=== PATIENT | female | born 1980 | race Two or more races ===

== ENCOUNTER → 2018-06-10 | Outpatient (CLI) | payer OTHER ==
[~2018-06-10] MED LIST: ISOVUE-370 76% 100ML VIAL (Q9967) As Ordered ONE
--- NOTE | 2018-06-10 18:03 | REP ---
Clinical: Left axillary swelling. Technique: Axial contrast enhanced images from the thoracic inlet to the upper abdomen with coronal and sagittal re-formations using 100 ml Isovue 370 intravenous contrast material. Comparison: None. Findings: Bilateral lung tovar are essentially well-aerated and clear. Very subtle right-sided posterobasilar dependent changes are suggested. No consolidation, significant nodule, pleural effusion, or pneumothorax. Tracheobronchial tree is patent. No adenopathy. A web of thin collateral vessels within the mediastinum appear to extend from the right subclavian vein which may represent chronic changes related to prior thrombus. The thoracic aorta and heart appear normal. No pericardial effusion. Surrounding musculoskeletal structures appear intact. Left axillary region is grossly unremarkable and without adenopathy. However, there is a focal area of skin thickening and small 12 mm rounded sub dermal focus which may represent small lymph node and possibly related to patient's symptoms (images 20-25) . Impression: 1. No acute pleuroparenchymal process appreciated. 2. 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 3. Very subtle area of dermal thickening with round 12 mm nodule at the region of the left axilla is otherwise nonspecific and possibly related to patient's symptoms. If necessary consider follow-up ultrasound. Electronically Signed by Leroy Chaves MD 06/10/2018 05:53 P
== END ==
LOC: M RAD 15:29
PROVIDERS: ATTEND Family Medicine
DX: R22.2 Localized swelling, mass and lump, trunk (principal); Z85.79 Personal history of other malignant neoplasms of lymphoid, hematopoietic and related tissues
CPT/HCPCS: 71260; Q9967

== ENCOUNTER → 2018-06-15 | Outpatient (CLI) | payer OTHER ==
--- NOTE | 2018-06-15 16:04 | REP ---
Digital diagnostic unilateral left breast mammography and focused left breast sonography: History: Palpable lump in the left axilla. Present times 3 months. Past medical history of stage III Hodgkin's lymphoma in 2003 treated with chemotherapy. Tender nodule on palpation. Comparison is made with CT study of the chest exam dated June 10, 2018 showing an area of dermal thickening and subdermal low density area in the left axilla. Mammographic findings: A skin marker is affixed to the skin at the site of the palpable lump. This was so high and so posterior in the left axilla that it could not be successfully or completely projected on the imaging field of view. The MLO view demonstrates the bottom portion of the skin marker. There is a normal appearing left axillary lymph node several centimeters deep to this. The breast parenchyma is homogeneously fat replaced. No dominant density, architectural distortion, or microcalcification is visible in the left breast. Sonographic findings: The area of the palpable abnormality is scanned in the left axilla. This corresponds to a superficial subdermal 1.4 x 0.7 x 1.7 cm hypoechoic area with enhanced through transmission and peripheral Doppler flow. The long axis of the lesion is parallel to the skin. No other abnormality is seen. This is felt to correspond to the abnormality on CT scanning. It is most compatible with an infected sebaceous cyst or hair follicle. Clinical follow-up is recommended. No adenopathy is seen. Impression: BIRADS category 3 probably benign left breast imaging. The palpable lesion most compatible with infected sebaceous cyst or hair follicle in the left axilla. Clinical follow-up is advised. Repeat sonography recommended in 6 months to document resolution. BI-RADS/ACR category 3 mammogram. Probably benign findings. Initial short-term followup (usually 6 month) examination. This mammogram was interpreted with the aid of an FDA-approved computer-aided detection system. The patient states she had a clinical breast exam in May 2018. The patient letter being requested is m#[id number] . Electronically Signed by Chaz Vaca MD 06/15/2018 05:05 P
== END ==
LOC: EDBD → M RAD 14:19 → EDUNIT# 14:30
PROVIDERS: ATTEND Family Medicine
DX: R22.32 Localized swelling, mass and lump, left upper limb (principal)

== ENCOUNTER → 2019-04-20 | Outpatient (CLI) | payer OTHER ==
[~2019-04-20] MED LIST changes: +DIPH25CA32 PO; +EPIP0.3I2 IM; +FIORCAP3 PO; +GASTROGRAFIN SOLUTION 30ML (Q9963) As Ordered ONE; +HYDR12.55 PO; +LOSA50TA88 PO; +NORV5TAB PO; +PRED50TA PO; +XARE20TA PO
--- NOTE | 2019-04-20 11:23 | REP ---
Clinical: Hodgkin's lymphoma. Technique: Axial contrast enhanced images from the lung bases to the pubic symphysis using oral (per protocol) and 100 ml Isovue 370 intravenous contrast material with coronal and sagittal re-formations. Comparison: None Findings: Lung bases are clear. Visualized heart and pericardium normal. Hepatomegaly suggested without focal hepatic lesion. Spleen is normal. Pancreas, gallbladder, bilateral adrenal glands and kidneys are unremarkable. The enteric system is without obstruction or acute inflammatory process. Normal terminal ileum and appendix identified in the right lower quadrant. Pelvis demonstrates normal bladder and age-appropriate uterus/adnexa. No ascites. No free air. No intraperitoneal or retroperitoneal adenopathy. Incidental circumaortic left renal veins noted. Abdominal aorta without aneurysm or dissection. Chronic L5 spondylolysis with approximately 11 mm of anterolisthesis and associated degenerative changes at L5-S1 disc space. Impression: No acute abdominopelvic pathology appreciated. No ascites. No adenopathy. No focal inflammatory stranding. Chronic L5 spondylolysis with spondylolisthesis. Electronically Signed by Leroy Chaves MD 04/20/2019 11:14 A
--- NOTE | 2019-04-20 11:32 | REP ---
CT neck soft tissues: 04/20/2019. Indication: Lymphoma. Comparison: 01/31/2018. Technique: Axial images of the neck soft tissues were obtained following 100 ml of IV Isovue 370. Coronal and sagittal reconstructions were provided. Findings: There is no cervical lymphadenopathy by size or morphologic criteria. There are a few non pathologic appearing lymph nodes bilaterally including the previously seen parotid/. Parotid lymph nodes. Left palatine tonsil tonsillar is present. There is a retropharyngeal course of the cervical ICA as. The thyroid gland is unremarkable. The airway is patent. No significant vascular abnormalities are detected. No significant ocular, intraorbital or intracranial abnormalities are detected. Please see dedicated chest report for additional details. Impression: No cervical lymphadenopathy. Electronically Signed by Marcos Combs DO 04/20/2019 11:24 A
--- NOTE | 2019-04-20 11:45 | REP ---
CT CHEST WITH IV CONTRAST: HISTORY: History of Hodgkin's lymphoma. Enlarging cervical and paraspinal nodes on [address] studies. Rule out recurrence. CT CONTRAST DOSE: 100 mL of intravenous Isovue 370. COMPARISON CT STUDY: January 15, 2019. CT FINDINGS: Digital diamond sorter view is unremarkable. A left arm vein is utilized for the contrast injection. 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 This is a chronic finding with well established venous collaterals including of bilateral internal mammary veins, azygos veins, peribronchial veins. 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 I do not see a visible SVC thrombus. There are tiny lymph nodes in the mediastinal fat in the upper mediastinum which are unchanged from comparison study. There are multiple densities in the mediastinal fat from collateral venous structures. No adenopathy is appreciated. There is good opacification of the aorta and pulmonary arterial tree. No aneurysm, dissection, or pulmonary embolus is appreciated. The lung tovar are clear except for some mild linear fibrosis in the left base. No bony destructive lesion is appreciated. 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 There is no evidence of hilar or mediastinal lymphadenopathy. No extrathoracic adenopathy is seen. Otherwise no acute disease. Electronically Signed by Chaz Vaca MD 04/20/2019 01:36 P
== END ==
LOC: M RAD 08:57
PROVIDERS: ATTEND Internal Medicine Medical Oncology
DX: Z85.71 Personal history of Hodgkin lymphoma (principal)
CPT/HCPCS: 70491; 71260; 74177; Q9963; Q9967